=== PATIENT | female | born 1950 | race Caucasian/White ===

== ENCOUNTER 2020-07-02 10:30 | Inpatient (IN) ==
--- NOTE | 2020-05-22 15:37 | PAT Medication Instructions ---
Medication Instructions Date of Service May 22, 2020 Home Medications Artificial Tears (PF) 1 drp OPHTHALMIC (EYE) HS PRN Prolia 1 amp SUBCUT Q6M Restasis 1 drp OPHTHALMIC (EYE) Q12H Ventolin HFA 2 puff INHALATION Q4 PRN albuterol sulfate 0.63 mg INHALATION QID PRN calcium carbonate-vitamin D3 [Calcium 500 + D (D3)] 2 tab PO QAM cetirizine [Zyrtec] 10 mg PO QAM cholecalciferol (vitamin D3) [Vitamin D3] 1,000 unit PO QAM cholecalciferol (vitamin D3) [Vitamin D3] 5,000 unit PO WK hydrocodone-acetaminophen 1 tab PO Q4H PRN levothyroxine 75 mcg PO QAM montelukast [Singulair] 10 mg PO PM morphine 15 mg PO Q12H omeprazole 20 mg PO QPM polyethylene glycol 3350 [Miralax] 17 g PO QAM prednisone 7.5 mg PO QAM primidone 25 mg PO QAM primidone 50 mg PO HS theophylline 300 mg PO QAM acetylcysteine 600 mg PO BID duloxetine 30 mg PO QAM tiotropium bromide [Spiriva Respimat] 1.25 mcg INHALATION QAM Continue as directed Prolia 1 amp SUBCUT Q6M cholecalciferol (vitamin D3) [Vitamin D3] 5,000 unit PO WK (just do not take on morning of surgery) DO NOT take the morning of surgery calcium carbonate-vitamin D3 [Calcium 500 + D (D3)] 2 tab PO QAM cetirizine [Zyrtec] 10 mg PO QAM cholecalciferol (vitamin D3) [Vitamin D3] 1,000 unit PO QAM polyethylene glycol 3350 [Miralax] 17 g PO QAM Take morning of surgery With a small sip of water, OTHERWISE NOTHING TO EAT OR DRINK AFTER MIDNIGHT: Restasis 1 drp OPHTHALMIC (EYE) Q12H Ventolin HFA 2 puff INHALATION Q4 PRN (use if needed; please bring with you to hospital day of surgery if possible) albuterol sulfate 0.63 mg INHALATION QID PRN (if needed) hydrocodone-acetaminophen 1 tab PO Q4H PRN (okay to take up to 4 hours prior to surgery if needed) levothyroxine 75 mcg PO QAM morphine 15 mg PO Q12H (okay to take up to 4 hours prior to surgery if needed) prednisone 7.5 mg PO QAM primidone 25 mg PO QAM duloxetine 30 mg PO QAM tiotropium bromide [Spiriva Respimat] 1.25 mcg INHALATION QAM theophylline 300 mg PO QAM acetylcysteine 600 mg PO BID Take evening before surgery Artificial Tears (PF) 1 drp OPHTHALMIC (EYE) HS PRN (if needed) Restasis 1 drp OPHTHALMIC (EYE) Q12H Ventolin HFA 2 puff INHALATION Q4 PRN (if needed) albuterol sulfate 0.63 mg INHALATION QID PRN (if needed) hydrocodone-acetaminophen 1 tab PO Q4H PRN (if needed) montelukast [Singulair] 10 mg PO PM morphine 15 mg PO Q12H omeprazole 20 mg PO QPM primidone 50 mg PO HS acetylcysteine 600 mg PO BID Other Notes If you have any questions please call us at [phone] or [phone] or [phone] or [phone]
--- NOTE | 2020-05-23 12:38 | Anesthesiology Consultation ---
Date of Service May 23, 2020 Assessment & Plan (1) Encounter for pre-operative examination: COVID Status: As of 05/23 assessment, patient denies travel to endemic area, known exposure/sick contacts, or symptoms of COVID19. Patient instructed that they and their household members must follow strict social distancing guidelines, wear a mask in public and avoid travel for 14 days prior to surgery. Preoperative COVID19 testing to be completed prior to surgery per surgeon's a rrangements. Patient made aware to self-isolate as much as possible between COVID testing and surgery. Pulmonary Clearance 02/23/20 = "Patient is requesting for preop respiratory evaluation for right shoulder surgery. She has had multiple surgeries in the past including knee replacement. She has multiple comorbidities including moderate COPD with associated bronchiectasis, pulmonary hypertension and has been on chronic steroids. She however remains functional and continues to go about her usual activities at her own pace. She is able to maintain decent saturation on room air at rest (98%) and with ambulation of 55 ft (97%). She remains at moderate to high risk for anesthetic complications based on stated comorbidities, and patient understands this fact and wants to proceed with the surgery." PCP Clearance 05/10/20 = "For rt shoulder surgery - cleared , moderate risk but her lung condition has been stable." Chart Review Chart Review: Acceptable Risk for Surgery and Patient seen in Pre Admission Testing Teaching & Discussion Instructed NPO after midnight before surgery, except medications with 15 cc of water. Medication instructions provided according to the PAT guidelines. History Surgery Operation Date: 06/08/20 07:00 Proposed Procedures p Right Reverse Total Shoulder Arthroplasty - Con Fang DO Height/Weight Height: 4 ft 9.5 in Weight: 48.534 kg Allergies Allergy/AdvReac Type Severity Reaction Status Date / Time sulfite Allergy Severe cardiac Verified 05/16/20 13:02 arrest aspirin Allergy Mild has Verified 05/16/20 13:02 trouble breathing ibuprofen Allergy Mild asthma Verified 05/16/20 13:02 peanut Allergy Mild airway Verified 05/16/20 13:02 edemas tetracycline Allergy Mild itchy Verified 05/16/20 13:02 Milk Containing Products Allergy Unknown asthma Verified 05/16/20 13:02 clopidogrel Allergy itching Verified 05/16/20 13:02 and swelling in throat gluten Allergy becomes Verified 05/16/20 13:02 sick latex Allergy Redness of Verified 05/16/20 13:56 Skin metoprolol Allergy itching Verified 05/16/20 13:02 and swelling of throat nickel Allergy redness Verified 05/16/20 13:02 and swelling [place]-Nar-Qcq Reductase Allergy itching Verified 05/16/20 13:02 Inhibitor Beef Containing Products AdvReac Mild constipatio Verified 05/16/20 13:02 n adhesive AdvReac Unknown tears skin Verified 05/16/20 13:02 off oxycodone [From Percocet] AdvReac aggitation Verified 05/16/20 13:02 and hallucinations pregabalin [From Lyrica] AdvReac hallucinati Verified 05/16/20 13:02 ons Medications Home Medications Medication Instructions Recorded Confirmed Last Taken Artificial Tears (PF) 1 drp OPHTHALMIC (EYE) HS PRN 07/09/18 05/16/20 07/26/18 04:00 Prolia 1 amp SUBCUT Q6M 07/09/18 05/16/20 Unknown Restasis 1 drp OPHTHALMIC (EYE) Q12H 07/09/18 05/16/20 07/26/18 03:30 Ventolin HFA 2 puff INHALATION Q4 PRN 07/09/18 05/16/20 07/26/18 03:30 albuterol sulfate 0.63 mg INHALATION QID PRN 07/09/18 05/16/20 07/26/18 03:30 calcium carbonate-vitamin D3 2 tab PO QAM 07/09/18 05/16/20 Unknown [Calcium 500 + D (D3)] cetirizine [Zyrtec] 10 mg PO QAM 07/09/18 05/16/20 07/26/18 03:30 cholecalciferol (vitamin D3) 1,000 unit PO QAM 07/09/18 05/16/20 Unknown [Vitamin D3] cholecalciferol (vitamin D3) 5,000 unit PO WK 07/09/18 05/16/20 Unknown [Vitamin D3] hydrocodone-acetaminophen 1 tab PO Q4H PRN 07/09/18 05/16/20 07/25/18 17:30 levothyroxine 75 mcg PO QAM 07/09/18 05/16/20 07/26/18 03:30 montelukast [Singulair] 10 mg PO PM 07/09/18 05/16/20 07/25/18 19:30 morphine 15 mg PO Q12H 07/09/18 05/16/20 07/25/18 19:30 omeprazole 20 mg PO QPM 07/09/18 05/16/20 07/26/18 03:30 polyethylene glycol 3350 [Miralax] 17 g PO QAM 07/09/18 05/16/20 07/25/18 prednisone 7.5 mg PO QAM 07/09/18 05/16/20 07/26/18 03:30 25 mg primidone 25 mg PO QAM 07/09/18 05/16/20 07/26/18 03:30 primidone 50 mg PO HS 07/09/18 05/16/20 07/25/18 19:30 theophylline 300 mg PO QAM 07/09/18 05/16/20 07/26/18 03:30 acetylcysteine 600 mg PO BID 05/16/20 05/16/20 Unknown duloxetine 30 mg PO QAM 05/16/20 05/16/20 Unknown tiotropium bromide [Spiriva 1.25 mcg INHALATION QAM 05/16/20 05/16/20 Unknown Respimat] melatonin 1.5 mg PO HS 05/23/20 05/23/20 Unknown Past Medical History Medical History (Updated 05/24/20 @ 15:51 by Carl Rodarte) Adrenal insufficiency Has been on prednisone for 58yrs. Asthma VERY SEVERE, HAS BEEN STABLE ON CHRONIC PREDNISONE Celiac disease Chronic obstructive pulmonary disease STABLE ON CHRONIC PREDNISONE; MOST RECENT FLARE 03/2020 WHEN EXPOSED TO SOMEONE WITH COVID19. PATIENT TESTED FOR COVID, RESULTS NEGATIVE, TREATED WITH USUAL RESCUE PACK FO ABX/INHALER/STEROID. Chronic steroid use x 58 years Emphysema lung GERD (gastroesophageal reflux disease) CONTROLLED Hiatal hernia MODERATE History of fibromyalgia History of HPV infection OROPHARYNGELA,. S/P UPPP History of traumatic brain injury 10/2018, mechanical fall with head trauma/brain bleed - resolved without surgical intervention - hospitalized [facility] Hypothyroidism Lung disease Follows with Dr. Jaquez, [facility] Steroid-induced osteoporosis Exercise / Class Metabolic Activity III < 4 Walking/Shop/Light housework (Denies CP or SOB with ambulation on one level) Past Surgical History Surgical History History of cataract surgery B/L History of colonoscopy History of endoscopic sinus surgery History of fusion of cervical spine 07/2018 [facility] - limited ROM side to side, up and down History of tonsillectomy History of uvulopalatopharyngoplasty Hx of section X2 Hx of hysterectomy TOTAL Hx of tooth extraction Hx of total knee replacement B/L; REVISIONS Past Anesthesia History No Hx of Anesthesia Complications and No Family Hx of Anesthesia Complications History of PONV No Hx of PONV and No Hx of Motion Sickness Social History Smoking Status: Former smoker tobacco type: cigarettes Smoking cigarettes per day: avg 1/2ppd hx Do You Dip or Chew Tobacco: No Smoking End Date: 2.5 years ago Hx Alcohol Use: No Hx Substance Use: No substance use type: does not use Review of Systems Pt denies any recent chest pain, shortness of breath, palpitations, cough, fever, URI, or uncontrolled acid reflux. Physical Exam Vital Signs BP: 137/74 P: 81bpm SPO2: 96% RA T: 98.2 F R: 16 Constitutional Frail-appearing/thin. ENMT Mouth: + dentures (partial upper); no chipped teeth and no loose teeth Thyromental Distance: > or= 3.5 Finger Breadths (3.5) Mallampati Class: I Many teeth missing. Uvula and tonsils surgically absent. Neck + short neck and + limited neck extension (mildly) Respiratory normal respiratory effort Auscultation: lungs clear to auscultation bilaterally Cardiovascular Rate/Rhythm: regular rate and regular rhythm Heart Sounds: no murmur Extremities: no edema Testing Laboratory Results 05/23/20 12:48 05/23/20 12:48 PT 10.7 Seconds (9.0-12.0) 05/23/20 12:48 INR 1.0 (0.9-1.1) 05/23/20 12:48 APTT 29.9 Seconds (21.0-31.0) 05/23/20 12:48 Blood Type O Positive 05/23/20 12:48 Antibody Screen NEGATIVE 05/23/20 12:48 *Re: leukocytosis, pt on chronic steroids. Electrocardiogram Date: 03/27/20 Sinus rhythm at 82 bpm with short LA. Possible left atrial enlargement. LVH with secondary repolarization abnormality. Compared with EKG of 04/29/2019, no significant change found. Chest X-Ray Date: 04/09/20 Lungs well expanded to hyper-aerated without pneumothorax or new pleural effusion. There is mild apical pleural thickening bilaterally, right greater than left. There is no new focal parenchymal consolidation or pulmonary vascular congestion. There is again linear parenchymal density particularly left lower lung field suspicious for atelectasis or scarring. Multiple parenchymal nodular densities are again seen bilaterally largest laterally in right midlung field measuring approximately 13 mm in greatest diameter. Follow- up CT imaging can be obtained. Recent CT demonstrated and apical nodular densities are not well delineated radiographically. Radiographic appearance cardiomediastinal silhouette and visualized osseous thorax stable. Thoracic aorta is again atherosclerotic and tortuous. Retrocardiac soft tissue density with air-fluid level seen compatible with hiatal hernia. Visualized osseous thorax demineralized with degenerative changes. Metallic fixation hardware again seen in visualized portions of cervical spine. Impression: No new focal parenchymal consolidation. Nodular parenchymal densities as noted. Echocardiogram Date: 03/21/20 EF: > 70% Small hypertrophied left ventricle with EF greater than 70%. The hypertrophy seems worse involving the anterolateral wall. There is no LV mural thrombus. The LV wall motion is normal. The LV diastolic function is mildly abnormal (grade 1). The left atrium is mildly enlarged. Mild aortic valve sclerosis is present. Insufficient TR to accurately measure pulmonary pressure. The diagn osis of hypertensive heart disease versus hypertrophic cardiomyopathy should be considered. *ordered and reviewed by pulmonology, no intervention or changes in plan of care initiated. Also reviewed with Dr. Bush, felt no cardiac referral needed.
[2020-05-23 14:06] LABS: Basophils # (auto) 0.02 K/uL (0-0.2); Basophils % (auto) 0.2 %; Eosinophils # (auto) 0.06 K/uL (0-0.5); Eosinophils % (auto) 0.5 %; Hematocrit (blood only) 42.6 % (37-47); Hemoglobin 13.1 g/dL (12.0-16.0); Immature Granulocytes # (auto) 0.09 K/uL (0.00-0.02); Immature Granulocytes % (auto) 0.7 %; Lymphocytes # (auto) 1.11 K/uL (1.2-3.4); Lymphocytes % (auto) 8.7 %; Mean Corpuscular Hemoglobin 25.1 pg (25-34); Mean Corpuscular Hgb Conc 30.8 g/dL (32-36); Mean Corpuscular Volume 81.8 fL (80-100); Mean Platelet Volume 9.7 fL (7.4-10.4); Monocytes # (auto) 0.47 K/uL (0.11-0.59); Monocytes % (auto) 3.7 %; Neutrophils % (auto) 86.2 %; Platelet Count 372 K/uL (130-400); RDW Coefficient of Variation 15.1 % (11.5-14.5); RDW Standard Deviation 45.1 fL (36.4-46.3); Red Blood Count 5.21 M/uL (4.2-5.4); White Blood Count 12.75 K/uL (4.8-10.8)
[2020-05-23 14:15] LABS: Partial Thromboplastin Ratio 1.1; Partial Thromboplastin Time 29.9 Seconds (21.0-31.0); Prothrombin Time 10.7 Seconds (9.0-12.0)
[2020-05-23 14:20] LABS: Creatinine Clr Calc Pharmacy 36.4 ml/min; Est GFR (African American) 66.2; Est GFR (Non-African American) 57.2; Potassium 4.4 mmol/L (3.5-5.1)
--- NOTE | 2020-06-28 08:41 | History & Physical Report ---
Date of Service June 28, 2020 Assessment & Plan (1) Rotator cuff arthropathy of right shoulder: We will proceed with a right reverse shoulder arthroplasty. She is on chronic morphine and Vicodin for generalized pain. Postoperatively she will be placed in a sling and kept overnight in the hospital for postoperative medical management. She is plan to use [employer] upon discharge. Present on Admission?: Yes History of Present Illness Chief Complaint: Rotator cuff arthropathy of the right shoulder Primary Care Provider: Shahnaz Verde MD Monisha is a pleasant 69-year-old female who has had a long history of multiple joint issues. She had asthma as a kid and was on 60 mg of prednisone daily since she was 11 years old. She has since been dropped down to 7 mg daily and has been on that maintenance dose for decades. She had her first knee replacement when she was in her 30s. She has had multiple joint replacements. 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 She has failed consent start of treatment and has elected proceed with a right reverse shoulder arthroplasty. Allergies Allergy/AdvReac Type Severity Reaction Status Date / Time sulfite Allergy Severe cardiac Verified 06/27/20 13:03 arrest aspirin Allergy Mild has Verified 06/27/20 13:03 trouble breathing ibuprofen Allergy Mild asthma Verified 06/27/20 13:03 peanut Allergy Mild airway Verified 06/27/20 13:03 edemas tetracycline Allergy Mild itchy Verified 06/27/20 13:03 Milk Containing Products Allergy Unknown asthma Verified 06/27/20 13:03 clopidogrel Allergy itching Verified 06/27/20 13:03 and swelling in throat gluten Allergy becomes Verified 06/27/20 13:03 sick latex Allergy Redness of Verified 06/27/20 13:03 Skin metoprolol Allergy itching Verified 06/27/20 13:03 and swelling of throat nickel Allergy redness Verified 06/27/20 13:03 and swelling [place]-Ffk-Qor Reductase Allergy itching Verified 06/27/20 13:03 Inhibitor Beef Containing Products AdvReac Mild constipatio Verified 06/27/20 13:03 n adhesive AdvReac Unknown tears skin Verified 06/27/20 13:03 off oxycodone [From Percocet] AdvReac aggitation Verified 06/27/20 13:03 and hallucinations pregabalin [From Lyrica] AdvReac hallucinati Verified 06/27/20 13:03 ons Home Medications Home Medications Medication Instructions Recorded Confirmed Type Artificial Tears (PF) 1 drp OPHTHALMIC (EYE) HS PRN 07/09/18 06/27/20 History Prolia 1 amp SUBCUT Q6M 07/09/18 06/27/20 History Restasis 1 drp OPHTHALMIC (EYE) Q12H 07/09/18 06/27/20 History Ventolin HFA 2 puff INHALATION Q4 PRN 07/09/18 06/27/20 History albuterol sulfate 0.63 mg INHALATION QID PRN 07/09/18 06/27/20 History calcium carbonate-vitamin D3 2 tab PO QAM 07/09/18 06/27/20 History [Calcium 500 + D (D3)] cetirizine [Zyrtec] 10 mg PO QAM 07/09/18 06/27/20 History cholecalciferol (vitamin D3) 1,000 unit PO QAM 07/09/18 06/27/20 History [Vitamin D3] cholecalciferol (vitamin D3) 5,000 unit PO WK 07/09/18 06/27/20 History [Vitamin D3] hydrocodone-acetaminophen 1 tab PO Q4H PRN 07/09/18 06/27/20 History levothyroxine 75 mcg PO QAM 07/09/18 06/27/20 History montelukast [Singulair] 10 mg PO PM 07/09/18 06/27/20 History morphine 15 mg PO Q12H 07/09/18 06/27/20 History omeprazole 20 mg PO QPM 07/09/18 06/27/20 History polyethylene glycol 3350 [Miralax] 17 g PO QAM 07/09/18 06/27/20 History prednisone 7.5 mg PO QAM 07/09/18 06/27/20 History primidone 25 mg PO QAM 07/09/18 06/27/20 History primidone 50 mg PO HS 07/09/18 06/27/20 History theophylline 300 mg PO QAM 07/09/18 06/27/20 History acetylcysteine 600 mg PO BID 05/16/20 06/27/20 History duloxetine 30 mg PO QAM 05/16/20 06/27/20 History tiotropium bromide [Spiriva 1.25 mcg INHALATION QAM 05/16/20 06/27/20 History Respimat] melatonin 1.5 mg PO HS 05/23/20 06/27/20 History Past Med/Surg History Medical History Adrenal insufficiency Has been on prednisone for 58yrs. Asthma VERY SEVERE, HAS BEEN STABLE ON CHRONIC PREDNISONE Celiac disease Chronic obstructive pulmonary disease STABLE ON CHRONIC PREDNISONE; MOST RECENT FLARE 03/2020 WHEN EXPOSED TO SOMEONE WITH COVID19. PATIENT TESTED FOR COVID, RESULTS NEGATIVE, TREATED WITH USUAL RESCUE PACK FO ABX/INHALER/STEROID. Chronic steroid use x 58 years Emphysema lung GERD (gastroesophageal reflux disease) CONTROLLED Hiatal hernia MODERATE History of fibromyalgia History of HPV infection OROPHARYNGELA,. S/P UPPP History of traumatic brain injury 10/2018, mechanical fall with head trauma/brain bleed - resolved without surgical intervention - hospitalized [facility] Hypothyroidism Lung disease Follows with Dr. Jaquez, [facility] Steroid-induced osteoporosis Surgical History History of cataract surgery B/L History of colonoscopy History of endoscopic sinus surgery History of fusion of cervical spine 07/2018 [facility] - limited ROM side to side, up and down History of tonsillectomy History of uvulopalatopharyngoplasty Hx of section X2 Hx of hysterectomy TOTAL Hx of tooth extraction Hx of total knee replacement B/L; REVISIONS Social History Smoking Status: Former smoker Cigarettes Per Day: avg 1/2ppd hx; Second Hand Exposure: Yes (as a child); Hx Alcohol Use: No Hx Substance Use: No Preferred Language: [place] Communication Ability: Effective Benzol Operator Required: No Beliefs That Will Affect Care: None Current Living Situation: Alone Feels Safe at Home: Yes Assistive Devices: Glasses and Walker Review of Systems Review of Systems: All systems reviewed & are unremarkable except as noted in HPI & below Physical Exam Constitutional: WD/WN, vitals as above Eyes: PERRL, conjunctivae normal, anicteric sclerae ENMT: external ear and nose normal, oropharynx normal Neck: trachea midline, no thyromegaly Respiratory: normal respiratory effort Cardiovascular: RRR, no murmur, no edema Gastrointestinal (Abdomen): normal bowel sounds, soft, nontender, no hepatosplenomegaly Musculoskeletal: Physical examination of the right shoulder reveals decreased range of motion and significant weakness. There is tenderness palpation along the anterior glenohumeral joint line. The right upper extremity is neurovascularly intact. Psychiatric: A+Ox3, euthymic affect Results & Data Results & Data ([facility]) Diagnostic Findings Radiographs of the right shoulder show some signs of osteoarthritis with blunting of the greater tuberosity and some superior migration of the humeral head on the glenoid. PG Care Time/CCT Total # of Minutes Spent Total Time Spent with Patient: Total time spent is greater than 50% in coordination of care (as documented) at patient's floor/unit and/or counseling patient: Coding Level of Care Code None Diagnoses Rotator cuff arthropathy of right shoulder M12.811
[~2020-07-02 10:30] MED LIST: ACETAMINOPHEN 500 MG TAB PO SCH; BUPIVACAINE 0.25% 30 ML VIAL ONE; BUPIVACAINE 0.5 % 5 MG/1 ML PF 10ML VIAL ONE; FAMOTIDINE 20 MG TAB PO SCH; GABAPENTIN 300 MG CAP PO SCH; LR 15ML/HR IV SCH; LR 60ML/HR IV SCH; ROPIVACAINE 0.5% HCL/PF 150 MG, BUPIVACAINE 0.5% MPF 30 ML, EPINEPHrine 30MG/30ML (OR U... INSTIL SCH; TRANEXAMIC ACID 1,000 MG **IV Intra-op IV SCH; TRANEXAMIC ACID 1,000 MG **IV Pre-op IV SCH; ceFAZolin 1000MG 1,000 MG/7.5 ML SYR IV SCH; dexAMETHasone 4 MG TAB PO SCH
[2020-07-02] MEDS ORDERED: MIDAZOLAM HCL 1 MG/ML 2ML VIAL ONE ×2 (11:10→11:11)
[2020-07-02] MEDS ORDERED: PROPOFOL IV EMULSION 10 MG/ML 20 ML VIAL IV ONE (11:10)
[2020-07-02] MEDS ORDERED: ONDANSETRON INJ 2 MG/ML 2 ML VIAL ONE ×2 (11:10→13:26)
[2020-07-02] MEDS ORDERED: LIDOCAINE HCL 2% 2 ML VIAL/AMP(20MG/ML) INFIL ONE (11:10)
[2020-07-02] MEDS ORDERED: fentaNYL citrate 100 MCG/2 ML VIAL ONE (11:10)
[2020-07-02] MEDS ORDERED: ROCURONIUM BROMIDE 10 MG/ML 5 ML VIAL IV ONE (11:10)
--- NOTE | 2020-07-02 11:20 | History & Physical Bridge Note ---
Date of Service July 02, 2020 History & Physical Bridge Note I have examined the patient, reviewed the History & Physical and in the interval since the performance of the History & Physical I have noted the following changes of clinical significance: no changes noted
[2020-07-02] MEDS ORDERED: ORTHO JOINT ANESTHETIC ONE (11:45)
[2020-07-02] MEDS ORDERED: ALBUT/IPRATROP 3MG/0.5MG NEB 3 ML VIAL INH PRN (12:02)
[2020-07-02] MEDS ORDERED: BUPIVACAINE 0.25% 30 ML VIAL ONE (12:06)
[2020-07-02] MEDS ORDERED: SUGAMMADEX SODIUM 200 MG/2 ML VIAL IV ONE (12:59)
[2020-07-02] MEDS ORDERED: HYDROCORTISONE SOD SUCCINATE 100 MG/2 ML VIAL ONE (13:06)
--- NOTE | 2020-07-02 14:18 | Operative Report ---
PG Post Operative Report Pre & Post Diagnosis Operation Date: 07/02/20 12:45 Pre-Op Diagnosis: Rotator cuff arthropathy of the right shoulder Post-Op Diagnosis: Rotator cuff arthropathy of the right shoulder I identified the patient and participated in the time-out.: Yes Procedure Operation Date: 07/02/20 12:45 Actual Procedures p Right Reverse Total Shoulder Arthroplasty(Right) - Con Fang DO Surgeon Con Fang DO Operations Vice President Con Leo PAC Estimated Blood Loss 200 Findings Consistent with Post-Op Diagnosis Specimens Right humeral head Complications none Disposition Disposition: Recovery Room Indications Monisha is a pleasant 69-year-old female who is been on chronic steroid use. She has been complaining of chronic right shoulder pain. X-rays clinical examination were diagnostic for cuff arthropathy of the right shoulder. After f ailing conservative treatment, she elected proceed with a right reverse shoulder arthroplasty. Description of Procedure Implants used: I used a [employer]omet Comprehensive reverse total shoulder arthroplasty system with a size 8 press fit micro humeral stem, a +6 humeral tray and a +3 humeral bearing, a 25 mm medium augment baseplate with a 6.5 mm central screw and superior and inferior locking screws, and a size 36 mm eccentric glenosphere. Monisha arrived at [facility] for the above procedure. She was seen in the preoperative holding area and the operative extremity was identified and signed. She was given a preoperative antibiotic, TXA, and an interscalene nerve block. She was taken back to the operating room, laid on table in supine position, and put under general anesthesia. She was then put into the beachchair position. The shoulder was then prepped and draped in sterile fashion. A timeout was done and the patient and the operative extremity was properly identified. A deltopectoral approach was used. Dissection was taken down through the fascia and the deltoid was retracted laterally and the conjoined tendon was retracted medially. The anterior shoulder was exposed. The biceps tendon was absent. The subscapularis was then directly released off the lesser tuberosity with a peel technique. The inferior capsule was released and the humeral head was dislocated. A canal finding reamer was sent down the center of the humeral canal. Sequential reaming up to a size 8 reamer was done. Off that reamer, a proximal humeral resection guide was placed. The proximal humerus was resected at 135 of inclination and 25 of retroversion. Osteophytes were then removed and the glenoid was exposed. Time was spent doing a complete capsular and labral release. The glenoid guide was then placed in the inferior aspect of the glenoid. A 3.2 mm Steinmann pin was then placed into the glenoid vault at 10 of inclination. The glenoid baseplate was then reamed. The final size 25 mm medium augment baseplate was then impacted in the place. A 6.5 mm central screw was then placed followed by superior and inferior locking screws. A 36 mm eccentric glenosphere was then impacted into place. Surrounding soft tissues were then injected with 100 cc an orthopedic pain control cocktail. The proximal humerus was then exposed. Sequential broaching of the humerus up to a size 8 broach was done. Off that broach a +6 offset humeral tray with a +3 thickness was trialed. The shoulder was then reduced, brought through a full range of motion, and felt to be stable. The shoulder was then dislocated and the broach was removed. The final size 8 micro press-fit humeral stem was then impacted into place. A +3 humeral bearing was then snapped onto a +6 humeral tray. The humeral tray was then impacted onto the humeral stem. The shoulder was once again reduced, brought through a full range of motion, and felt to be stable. The subscapularis was then tenodesed back to the lesser tuberosity with transosseous FiberWire sutures and side to side sutures with the arm in 45 of external rotation. A dilute betadyne lavage was then done for 3 minutes. The joint was then irrigated with normal saline solution. Hemostasis was obtained. The interval was closed with 2-0 Vicryl suture. The skin was then closed with 2-0 Vicryl and salvador. A Silverlon dressing was placed and the arm was rested in a regular arm sling. She was then extubated and transferred to a hospital bed. She taken to the postanesthesia care unit in stable condition. She tolerated the procedure well. Con Leo PA-C, was present for the entire procedure. He was critical for patient positioning, prepping, draping, retraction exposure, wound closure and application of sterile dressing. I attest to the content of the Intraoperative Record and any orders documented therein. Any exceptions are noted below.
--- NOTE | 2020-07-02 15:12 | XRay Report ---
XR shoulder RT min 2V routine HISTORY: 69 years-old Female Post shoulder surgery right shoulder total joint arthroplasty COMPARISON: Shoulder radiographs 05/23/2020 TECHNIQUE: 2 views of the right shoulder FINDINGS: Reverse right shoulder total joint arthroplasty demonstrates satisfactory alignment. Expected postsur gical soft tissue swelling and deep tissue air with overlying skin salvador. No acute fracture or unex pected retained foreign body. Healed remote right-sided rib fractures. IMPRESSION: Reverse right shoulder total joint arthroplasty with expected postoperative changes. ACT 112: Negative or not required by law. The above report was generated using voice recognition software. It may contain grammatical, syntax o r spelling errors. Electronically signed by: Parviz Burroughs M.D. 07/02/2020 3:11 PM
--- NOTE | 2020-07-02 15:13 | Anesthesiology Progress Note ---
Date of Service July 02, 2020 Anesthesia Post Procedure Vital Signs Vital Signs: Temp Pulse Pulse Resp BP Pulse Ox 07/02/20 15:10 76 12 121/57 L 98 07/02/20 15:00 79 13 124/61 96 07/02/20 14:50 79 12 143/84 H 100 07/02/20 14:43 36.3 C L 85 13 170/70 H 95 07/02/20 11:43 36.8 C 80 18 140/69 95 07/02/20 11:07 37.0 C 77 16 161/83 H 97 Pain Intensity Right Shoulder: Pain Intensity: 4 Transfer of Care Handoff Completed per policy Notes Mental Status: alert / awake / arousable and participated in evaluation Patient Amnestic to Procedure: Yes Nausea / Vomiting: adequately controlled Pain: adequately controlled Airway Patency, RR, SpO2: stable & adequate BP & HR: stable & adequate Hydration State: stable & adequate Anesthetic Complications: no major complications apparent and Pt Satisfied with anesthetic care
[2020-07-02] MEDS ORDERED: MoRPHine SULFATE 4 MG/ML 1 ML CARP\\VIAL IV PRN (15:56)
[2020-07-02] MEDS ORDERED: METOCLOPRAMIDE HCL INJ 5 MG/ML 2 ML VIAL IV PRN (15:56)
[2020-07-02] MEDS ORDERED: MAGNESIUM HYDROXIDE SUSP 30 ML UDC PO PRN (15:56)
[2020-07-02] MEDS ORDERED: ONDANSETRON INJ 2 MG/ML 2 ML VIAL IV PRN (15:56)
[2020-07-02] MEDS ORDERED: NON-FORMULARY MEDICATION (Denosumab [Prolia] 60 mg/mL Syringe) SQ SCH (15:56)
[2020-07-02] MEDS ORDERED: bisacodyL 10 MG SUPP PR PRN (15:56)
[2020-07-02] MEDS ORDERED: NALOXONE HCL 0.4 MG/1 ML VIAL/CARP IV PRN (15:56)
[2020-07-02] MEDS ORDERED: HYDROmorphone INJ 0.5 MG/0.5 ML SYR IV PRN (15:56)
[2020-07-02] MEDS ORDERED: HYDROCODONE/ACETAMOPHEN 5/325MG TAB PO PRN (15:56)
[2020-07-02] MEDS ORDERED: ARTIFICIAL TEARS OP PRN (16:07)
[2020-07-02] MEDS ORDERED: ALBUTEROL HFA 8 GM INHALER INH PRN (16:13)
[2020-07-02] MEDS ORDERED: ALBUTEROL 0.083% NEBU SOLN 3 ML VIAL INH PRN (16:18)
[2020-07-02] MEDS: SODIUM CHLORIDE 0.9% 1000ML 1,000 ML IV SCH (17:39)
[2020-07-02] MEDS: KETOROLAC TROMETHAMINE 15 MG/ML VIAL IV SCH ×2 (17:42→22:10)
[2020-07-02] MEDS: ceFAZolin 2000MG 2,000 MG/15 ML SYR IV SCH (20:32)
[2020-07-02] MEDS: PRIMIDONE 50 MG TAB PO SCH (20:39)
[2020-07-02] MEDS: MONTELUKAST SODIUM 10 MG TABLET PO SCH (20:40)
[2020-07-02] MEDS: PANTOprazole 40 MG TAB PO SCH (20:40)
[2020-07-02] MEDS: SENNA 8.6 MG TAB PO SCH (20:40)
[2020-07-02] MEDS: DOCUSATE SODIUM 100 MG CAP PO SCH (20:40)
[2020-07-02] MEDS: MELATONIN 3 MG TAB PO SCH (22:08)
[2020-07-02] MEDS: ACETAMINOPHEN 500 MG TAB PO SCH (22:08)
[2020-07-03] MEDS: SODIUM CHLORIDE 0.9% 1000ML 1,000 ML IV SCH (04:42)
[2020-07-03] MEDS: ceFAZolin 2000MG 2,000 MG/15 ML SYR IV SCH (05:46)
[2020-07-03] MEDS: LEVOTHYROXINE SODIUM 75 MCG TABLET PO SCH (05:47)
[2020-07-03] MEDS: ACETAMINOPHEN 500 MG TAB PO SCH ×3 (05:47→21:07)
[2020-07-03] MEDS: KETOROLAC TROMETHAMINE 15 MG/ML VIAL IV SCH ×4 (05:47→22:08)
[2020-07-03 06:03] LABS: Basophils # (auto) 0.01 K/uL (0-0.2); Basophils % (auto) 0.1 %; Hematocrit (blood only) 37.2 % (37-47); Hemoglobin 11.1 g/dL (12.0-16.0); Immature Granulocytes # (auto) 0.04 K/uL (0.00-0.02); Immature Granulocytes % (auto) 0.3 %; Lymphocytes # (auto) 0.84 K/uL (1.2-3.4); Lymphocytes % (auto) 6.7 %; Mean Corpuscular Hemoglobin 24.6 pg (25-34); Mean Corpuscular Hgb Conc 29.8 g/dL (32-36); Mean Corpuscular Volume 82.5 fL (80-100); Mean Platelet Volume 9.3 fL (7.4-10.4); Monocytes # (auto) 0.98 K/uL (0.11-0.59); Monocytes % (auto) 7.9 %; Neutrophils # (auto) 10.58 K/uL (1.4-6.5); Platelet Count 402 K/uL (130-400); RDW Coefficient of Variation 15.6 % (11.5-14.5); Red Blood Count 4.51 M/uL (4.2-5.4); White Blood Count 12.45 K/uL (4.8-10.8)
[2020-07-03 06:39] LABS: BUN Creatinine Ratio 17.3 (10-20); Calcium 7.9 mg/dl (8.5-10.1); Creatinine Clr Calc Pharmacy 37.3 ml/min; Est GFR (African American) 68.7; Est GFR (Non-African American) 59.3; Potassium 4.4 mmol/L (3.5-5.1)
--- NOTE | 2020-07-03 06:55 | Orthopedic Progress Note ---
Date of Service July 03, 2020 Assessment & Plan (1) Status post reverse arthroplasty of right shoulder: Overall she is doing fairly well. She is not having any pain in the right shoulder now because the block is still in effect. She has been on chronic prednisone for years and she is on chronic narcotic pain medications. She is very concerned of where her pain level will be when the block wears off. We will keep her in the hospital today for pain control. We plan to discharge her to home tomorrow as long as she is doing well. Present on Admission?: Yes Admission and Anticipated Discharge Date Admission Date: July 02, 2020 Radha Bearden was seen and examined at bedside this morning. She not having any pain in the right shoulder. The block is still in effect. She is very concerned about her pain control after the block wears off. She was able to get some sleep last night. She has no other complaints. Physical Exam Physical Exam: On physical examination of the right shoulder, the dressing is clean and dry. She is wearing her sling as instructed. The block is still in effect so I was unable to get a good neuro logic examination. Results & Data ([facility]) Vital Signs (Past 12 Hours) Vital Signs Temp Pulse Resp BP Pulse Ox 07/03/20 05:58 100 07/03/20 03:34 36.5 C 65 16 124/74 100 07/03/20 00:15 96 07/03/20 00:11 36.4 C L 75 16 107/67 07/02/20 19:55 36.4 C L 76 16 98/57 L 96 Laboratory Results H & H 05/23/20 07/03/20 Range/Units 12:48 05:39 Hgb 13.1 11.1 L (12.0-16.0) g/dL Hct 42.6 37.2 (37-47) % Coagulation 05/23/20 Range/Units 12:48 INR 1.0 (0.9-1.1) Diagnostic Findings Postoperative x-rays of the right shoulder show the prosthesis to be in anatomic alignment without any evidence of fracture, dislocation, or loosening. PG Care Time/CCT Total # of Minutes Spent Total Time Spent with Patient: Total time spent is greater than 50% in coordination of care (as documented) at patient's floor/unit and/or counseling patient: Coding Level of Care Code None Diagnoses Status post reverse arthroplasty of right shoulder Z96.611
[2020-07-03] MEDS: MULTIVITAMIN TAB PO SCH (09:47)
[2020-07-03] MEDS: DOCUSATE SODIUM 100 MG CAP PO SCH ×2 (09:47→21:07)
[2020-07-03] MEDS: CETIRIZINE HCL 10 MG TABLET PO SCH (09:47)
[2020-07-03] MEDS: DULoxetine HCL 30 MG CAP PO SCH (09:47)
[2020-07-03] MEDS: PRIMIDONE 50 MG TAB PO SCH ×2 (09:48→21:07)
[2020-07-03] MEDS: UMECLIDINIUM BROMIDE 62.5MCG/BLISTER 7 PUFFS/INHALER INH SCH (09:50)
[2020-07-03] MEDS: POLYETHYLENE (MIRALAX) 17 GM PACK PO SCH (09:50)
[2020-07-03] MEDS: predniSONE 2.5 MG TAB PO SCH (09:50)
[2020-07-03] MEDS: THEOPHYLLINE 300MG EXTENDED REL TAB PO SCH (09:51)
--- NOTE | 2020-07-03 10:19 | Anesthesiology Progress Note ---
Date of Service July 03, 2020 Anesthesia Post Procedure Vital Signs Vital Signs: Temp Pulse Pulse Pulse Resp BP Pulse Ox 07/03/20 07:53 07/03/20 07:44 36.6 C 73 16 123/72 94 07/03/20 05:58 100 07/03/20 03:34 36.5 C 65 16 124/74 100 07/03/20 00:15 96 07/03/20 00:11 36.4 C L 75 16 107/67 07/02/20 19:55 36.4 C L 76 16 98/57 L 96 07/02/20 17:49 36.6 C 80 18 121/70 97 07/02/20 16:57 36.6 C 77 16 103/63 97 07/02/20 16:17 36.6 C 77 16 99/62 L 96 07/02/20 15:30 75 15 106/51 L 97 07/02/20 15:20 36.6 C 76 16 112/61 97 07/02/20 15:10 76 12 121/57 L 98 07/02/20 15:00 79 13 124/61 96 07/02/20 14:50 79 12 143/84 H 100 07/02/20 14:43 36.3 C L 85 13 170/70 H 95 07/02/20 11:43 36.8 C 80 18 140/69 95 07/02/20 11:07 37.0 C 77 16 161/83 H 97 Pulse Ox 07/03/20 07:53 93 07/03/20 07:44 07/03/20 05:58 07/03/20 03:34 07/03/20 00:15 07/03/20 00:11 07/02/20 19:55 07/02/20 17:49 07/02/20 16:57 07/02/20 16:17 07/02/20 15:30 07/02/20 15:20 07/02/20 15:10 07/02/20 15:00 07/02/20 14:50 07/02/20 14:43 07/02/20 11:43 07/02/20 11:07 Pain Intensity Right Shoulder: Pain Intensity: 4 Notes Mental Status: alert / awake / arousable and participated in evaluation Patient Amnestic to Procedure: Yes Nausea / Vomiting: adequately controlled Pain: adequately controlled Airway Patency, RR, SpO2: stable & adequate BP & HR: stable & adequate Hydration State: stable & adequate Anesthetic Complications: no major complications apparent and Pt Satisfied with anesthetic care
[2020-07-03] MEDS: RESTASIS: ORDER AWAITING ACTION SCH ×2 (16:39→23:56)
[2020-07-03] MEDS: SENNA 8.6 MG TAB PO SCH (21:07)
[2020-07-03] MEDS: PANTOprazole 40 MG TAB PO SCH (21:07)
[2020-07-03] MEDS: MELATONIN 3 MG TAB PO SCH (21:07)
[2020-07-03] MEDS: MONTELUKAST SODIUM 10 MG TABLET PO SCH (21:07)
[2020-07-04] MEDS: LEVOTHYROXINE SODIUM 75 MCG TABLET PO SCH (05:22)
[2020-07-04] MEDS: KETOROLAC TROMETHAMINE 15 MG/ML VIAL IV SCH ×2 (05:22→11:01)
[2020-07-04] MEDS: ACETAMINOPHEN 500 MG TAB PO SCH (05:34)
--- NOTE | 2020-07-04 07:53 | Orthopedic Progress Note ---
Date of Service July 04, 2020 Assessment & Plan (1) Status post reverse arthroplasty of right shoulder: Patient's pain is currently well controlled. She is recovering as expected to this point. She is orthopedically stable. She will likely be discharged home today. She will follow up in our office in 2 weeks postoperatively. Admission and Anticipated Discharge Date Admission Date: July 02, 2020 Radha Heredia was seen and examined at bedside today. She states her pain increased last night but states it is now well controlled. The numbness and tingling in her right hand has subsided. She has been working with physical therapy for range of motion exercises. She has no new complaints today. She is looking forward to discharge. Physical Exam Physical Exam: Monihsa was laying comfortably in bed with no acute distress. She is alert and oriented x3. She was wearing her sling as instructed. Her dressing appeared clean and dry with no significant discharge. She is able to flex and extend her digits. She is neurovascularly intact. Results & Data ([facility]) Vital Signs (Past 12 Hours) Vital Signs Temp Pulse Resp BP Pulse Ox 07/04/20 07:44 36.7 C 70 16 170/73 H 95 07/03/20 23:31 36.6 C 81 14 160/76 H 93 PG Care Time/CCT Total # of Minutes Spent Total Time Spent with Patient: Total time spent is greater than 50% in coordination of care (as documented) at patient's floor/unit and/or counseling patient: Coding Level of Care Code None Diagnoses Status post reverse arthroplasty of right shoulder Z96.611
--- NOTE | 2020-07-04 08:18 | Discharge Summary ---
Date of Service July 04, 2020 Admission HPI Per Admitting Provider Monisha is a pleasant 69-year-old female who has had a long history of multiple joint issues. She had asthma as a kid and was on 60 mg of prednisone daily since she was 11 years old. She has since been dropped down to 7 mg daily and has been on that maintenance dose for decades. She had her first knee replacement when she was in her 30s. She has had multiple joint replacements. 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 She has failed consent start of treatment and has elected proceed with a right reverse shoulder arthroplasty. Principal Diagnosis Right reverse total shoulder arthroplasty Discharge Data Allergies Allergy/AdvReac Type Severity Reaction Status Date / Time sulfite Allergy Severe cardiac Verified 07/02/20 10:57 arrest aspirin Allergy Mild has Verified 07/02/20 10:57 trouble breathing ibuprofen Allergy Mild asthma Verified 07/02/20 10:57 peanut Allergy Mild airway Verified 07/02/20 10:57 edemas tetracycline Allergy Mild itchy Verified 07/02/20 10:57 Milk Containing Products Allergy Unknown asthma Verified 07/02/20 10:57 clopidogrel Allergy itching Verified 07/02/20 10:57 and swelling in throat gluten Allergy becomes Verified 07/02/20 10:57 sick latex Allergy Redness of Verified 07/02/20 10:57 Skin metoprolol Allergy itching Verified 07/02/20 10:57 and swelling of throat nickel Allergy redness Verified 07/02/20 10:57 and swelling Pjwigws-Ypj-Kcd Reductase Allergy itching Verified 07/02/20 10:57 Inhibitor adhesive AdvReac Unknown tears skin Verified 07/02/20 10:57 off oxycodone [From Percocet] AdvReac aggitation Verified 07/02/20 10:58 and hallucinations pregabalin [From Lyrica] AdvReac hallucinati Verified 07/02/20 10:57 ons Consultations 07/02/20 15:56 Consult Case Management - Discharge Planning Routine Procedures Performed Operation Date: 07/02/20 12:45 Actual Procedures p Right Reverse Total Shoulder Arthroplasty(Right) - Con Fang DO Ordered Studies 06/08/20 05:00 US - OR guided needle placemen Routine 07/02/20 05:00 US - OR guided needle placemen Routine Hospital Course (1) Status post reverse arthroplasty of right shoulder: On July 02, 2020 Monisha arrived at [facility] and underwent a right reverse shoulder arthroplasty without complication. She had a general anesthetic and a right interscalene nerve block. Postoperatively she was placed in a sling and transferred to the general orthopedic floors. Her hospital course was uneventful. On postop day #1 her H&H was stable and her pain was well controlled. She was seen by physical therapy for ambulatory assistance and range of motion exercises. On postop day 2 her H&H was stable and her pain was well controlled again. She was then discharged home. She will follow-up with orthopedics in 2 weeks. Total Time Total Time Spent Total Time Spent (In Minutes): 20 Discharge Plan Discharge Items Patient Disposition: Home - Home Health Services Reason For Visit: Right Shoulder Degenerative Joint Disease Discharge Diagnosis: Right reverse shoulder replacement Activity: As commented below Non-emergency contact: Surgeon Call non-emergency contact if: your wound has increased redness and your wound has increased drainage Follow-up/Referrals: Shahnaz Verde MD [Primary Care Provider] - Diet: Regular Addtl Attending Provider Instructions: Activity and Therapy Recommendations: * If you are using [facility] then therapy will be provided at your home until they feel you have accomplished all of your goals. * If you are using [facility] then Physical Therapy will be provided until they feel you are ready to start Outpatient Physical Therapy. * If you are not using home therapy then Outpatient Physical Therapy should start about 3-5 days from your day of surgery. Therapy will last about 8-12 weeks * Wear your sling for 3 weeks, unless otherwise instructed. You may remove your sling to shower and to dress, but otherwise, you should be in your sling at all times, including while sleeping * The shoulder replacement is very stable and you can use your hand while in the sling * You were shown a series of exercises in the hospital. Do these exercises daily including the exercises you were shown in physical therapy. Medications: * Narcotic You will likely be sent home from the hospital with a prescription for the narcotic pain medication that worked best throughout your stay. * Other medications may be prescribed for specific circumstances. If you have any questions, please call the office at . * Resume previous home medications unless otherwise instructed Dressing Care: Leave the Silverlon dressing in place for 7 days. After 7 days you may remove the dressing. If the incision is not draining then you may leave the salvador open to air. If there is a little bit of drainage or if the salvador are getting stuck on your clothing then cover the incision with a dry dressing. The salvador will be removed at your 2 week follow-up appointment. Showering: You may shower with the Silverlon dressing in place. Do not let the shower spray hit the dressing directly. Pat the Silverlon dressing dry. If the dressing becomes wet underneath, then simply remove the dressing. Keep the incision dry until you are 7 days out from the day of surgery. After 7 days you may remove the Silverlon dressing and shower with the salvador exposed. Let soapy water run over the salvador and pat them dry. Do not scrub or soak the incision. Things To Watch For: * Drainage from the incision site that occurs more than one week after your surgery. * Increased redness at the incision site. * Fever above 102 degrees Fahrenheit. * Unusual chest pain or shortness of breath. * Call [facility] at with any of the above problems Follow-Up Visit: Follow-up with Dr. Fang's PA (Con Leo) 2-3 weeks after your day of surgery. He will remove your salvador and answer any questions. If you have any additional questions or concerns, Dr Fang is usually in the office at the same time and will be available An appointment was probably scheduled when you signed-up for surgery in the office. If you have any questions call More detailed instructions as well as Frequently Asked Questions were provided in a folder by our office when you signed-up for surgery. Please review these instructions when you get home. If you have any further questions or concerns, please feel free to call the office at [phone] Pending Studies at Discharge: No Stand-Alone Forms: My [facility], Smoking Cessation Medications and DC Order Prescriptions: New morphine 30 mg tablet extended release 30 mg PO Q12H Qty: 30 RF: 0 hydrocodone-acetaminophen 5-325 mg tablet 1 tab PO Q4H PRN (Reason: pain) Qty: 60 RF: 0 Continued albuterol sulfate 0.63 mg/3 mL Solution For Nebulization 0.63 mg INHALATION QID PRN (Reason: Wheezing) RF: 0 primidone [Mysoline] 50 mg Tablet 25 mg PO QAM RF: 0 primidone 50 mg Tablet 50 mg PO HS RF: 0 cetirizine [Zyrtec] 10 mg Tablet 10 mg PO QAM RF: 0 prednisone 5 mg Tablet 7.5 mg PO QAM RF: 0 theophylline 300 mg Tablet Extended Release 12 Hr 300 mg PO QAM RF: 0 levothyroxine 75 mcg Tablet 75 mcg PO QAM RF: 0 montelukast [Singulair] 10 mg Tablet 10 mg PO PM RF: 0 Restasis 0.05 % Dropperette 1 drp OPHTHALMIC (EYE) Q12H RF: 0 Artificial Tears (PF) Dropperette 1 drp OPHTHALMIC (EYE) HS PRN (Reason: Dry Eyes) RF: 0 cholecalciferol (vitamin D3) [Vitamin D3] 1,000 unit Tablet 1,000 unit PO QAM RF: 0 calcium carbonate-vitamin D3 [Calcium 500 + D (D3)] 500 mg(1,250mg) -125 unit Tablet 2 tab PO QAM RF: 0 omeprazole 20 mg Tablet,Delayed Release (Dr/Ec) 20 mg PO QPM RF: 0 cholecalciferol (vitamin D3) [Vitamin D3] 5,000 unit Tablet 5,000 unit PO WK RF: 0 Prolia 60 mg/mL Syringe 1 amp subcut Q6M RF: 0 Ventolin HFA 2 puff Inhalation Q4 PRN (Reason: Wheezing) RF: 0 polyethylene glycol 3350 [Miralax] 17 gram Powder In Packet 17 g PO QAM RF: 0 duloxetine [Cymbalta] 30 mg Capsule,Delayed Release(Dr/Ec) 30 mg PO QAM RF: 0 acetylcysteine [NAC] 600 mg Capsule 600 mg PO BID RF: 0 Spiriva Respimat 1.25 mcg/actuation Mist 1.25 mcg INHALATION QAM RF: 0 melatonin 1.5 mg Tablet 1.5 mg PO HS RF: 0 Discontinued hydrocodone-acetaminophen 5-325 mg Tablet 1 tab PO Q4H PRN (Reason: Pain) RF: 0 morphine 15 mg Tablet,Oral Only,Ext.Rel.12 Hr 15 mg PO Q12H RF: 0 Discharge Orders: Discharge Order (Routine); Ordered 07/04/20 Ordered By: Con Fang Admission Data Admit Date/Time: 07/02/20 14:46 Attending Provider: Con Fang Admit Provider: Con Fang Primary Care Provider: Shahnaz Verde
[2020-07-04] MEDS: POLYETHYLENE (MIRALAX) 17 GM PACK PO SCH (08:39)
[2020-07-04] MEDS: RESTASIS: ORDER AWAITING ACTION SCH (08:39)
[2020-07-04] MEDS: DOCUSATE SODIUM 100 MG CAP PO SCH (08:39)
[2020-07-04] MEDS: UMECLIDINIUM BROMIDE 62.5MCG/BLISTER 7 PUFFS/INHALER INH SCH (08:40)
[2020-07-04] MEDS: THEOPHYLLINE 300MG EXTENDED REL TAB PO SCH (08:40)
[2020-07-04] MEDS: MULTIVITAMIN TAB PO SCH (08:40)
[2020-07-04] MEDS: predniSONE 2.5 MG TAB PO SCH (08:40)
[2020-07-04] MEDS: DULoxetine HCL 30 MG CAP PO SCH (08:40)
[2020-07-04] MEDS: CETIRIZINE HCL 10 MG TABLET PO SCH (08:40)
[2020-07-04] MEDS: PRIMIDONE 50 MG TAB PO SCH (08:41)
== END 2020-07-04 11:44 | disposition home health service (06) | DRG 483 ==
LOC: ASU 10:30 → 3E 14:46